=== PATIENT | female | born 1980 | race Caucasian/White ===

== ENCOUNTER 2021-09-01 15:37 | Emergency (ER) | payer OTHER | END 2021-09-01 18:06 | disposition home or self-care (01) | LOC: ER1 15:37 | DX: G43.909 Migraine, unspecified, not intractable, without status migrainosus (principal); Z88.2 Allergy status to sulfonamides | CPT/HCPCS: 96374; 96375; 99283; J1200; J1885; J2550; J2765; J7030 ==